=== PATIENT | male | born 1995 | race African-American/Black ===

== ENCOUNTER 2018-01-15 20:41 | Emergency (ER) | payer MEDICAID, OTHER ==
[~2018-01-15] VITALS: Ht 182.9 cm; Wt 80.3 kg
[2018-01-15 20:44] VITALS: BP 110/62
[2018-01-15] MEDS ORDERED: CEFTRIAXONE 1,000 MG IM ONE (21:30)
[2018-01-15] MEDS ORDERED: LIDOCAINE-MPF 1%, 2ML ONE (21:32)
[2018-01-15] MEDS ORDERED: CEFTRIAXONE 250 MG ONE (21:32)
[2018-01-15 21:42] LABS: MICROSCOPIC NOT IND
[2018-01-15 21:45] LABS: CULTURE INDICATED? NO
== END 2018-01-15 21:56 | disposition home or self-care (01) ==
LOC: ED 21:20
DX: A56.01 Chlamydial cystitis and urethritis (principal); L04.1 Acute lymphadenitis of trunk; X50.9XXA Other and unspecified overexertion or strenuous movements or postures, initial encounter; Y93.89 Activity, other specified; Y92.69 Other specified industrial and construction area as the place of occurrence of the external cause; Y99.0 Civilian activity done for income or pay
CPT/HCPCS: 81003; 87491; 87591; 99284

== ENCOUNTER 2019-11-28 23:02 | Emergency (ER) | payer MEDICAID ==
[~2019-11-28] VITALS: Ht 182.9 cm; Wt 74.9 kg
[2019-11-28 23:04] VITALS: BP 138/64
--- NOTE | 2019-11-29 01:00 | NUR ---
PT REPORTS IMPROVED PAIN POST I&D. DC EDUCATION PROVIDED. PT DEMONSTRATES UNDERSTANDING. PT AMBULATED STEADILY TO DC WITH RN AND FRIEND.
== END 2019-11-29 01:01 | disposition home or self-care (01) ==
LOC: ED 11-29 00:51
DX: K04.7 Periapical abscess without sinus (principal); K08.89 Other specified disorders of teeth and supporting structures; F17.200 Nicotine dependence, unspecified, uncomplicated
CPT/HCPCS: 41800; 99284